=== PATIENT | female | born 1980 | race Caucasian/White ===

== ENCOUNTER 2019-04-23 04:40 | Inpatient (IN) | payer OTHER ==
--- NOTE | 2019-04-23 05:30 | HP ---
Past Medical History - Admission History Source: Patient, Family Member Limitations to Obtaining History: Language Barrier - Past Medical History ...: 2 ...Para: 1 ([facility]) ... Weeks Gestation by Dates: 39 - Smoking History Smoking history: Never smoked Have you smoked in the past 12 months: No - Alcohol/Substance Use Hx Alcohol Use: No - Social History Usual Living Arrangement: Yes: With Spouse Home Medications - Allergies Allergies/Adverse Reactions: Allergies Allergy/AdvReac Type Severity Reaction Status Date / Time No Known Allergies Allergy Verified 12/25/15 06:50 - Home Medications Home Medications: Ambulatory Orders Amoxicillin - [Amoxicillin 500mg Capsule -] 500 mg PO TID #21 capsule 02/25/16 Physical Exam - Maternity - Abdominal Exam/OB Number of Fetuses: Single Presentation: Vertex Contractions: Yes Regularity: Regular Monitor Mode: External Heart Rate Location: Midline Category: I Accelerations: Uniform - Vaginal Exam/OB Vaginal Bleediing: No Speculum Exam: No Dilatation (cm): 10 Effacement (%): 100 Amniotic Membrane Status: Bulging Amniotic Fluid: Yes: Clear Presentation: Vertex/Position (bulging membranes; ruptured) Assessment/Plan Bulging membranes. Fully dilated, station +3 At term, second baby. AROM Deliver.
--- NOTE | 2019-04-23 05:35 | PN ---
Progress Note, Labor Vaginal Exam #1 Labor Exam Date: 04/23/19 Labor Exam Time: 05:10 Heart Rate (range): wnl Dilatation: f Effacement (%): 100 Amniotic Membrane Status: Bulging Station: +3 (AROM, clear)
--- NOTE | 2019-04-23 05:37 | PN ---
Delivery - Delivery Vaginal Delivery: No Problems, Spontaneous (, female infant. Apg 9 and 9) Type of Anesthesia: None Episiotomy/Laceration: None EBL (cc): 250 Delivery, Single - Stages of Labor Date 1st Stage Initiatied: 04/22/19 Date 2nd Stage Initiated: 04/23/19 Date of Delivery: 04/23/19 Time of Delivery: 05:15 Date Placenta Delivered: 04/23/19 Time Placenta Delivered: 05:20 Placenta: Yes: Spontaneous, Normal Configuration - Condition of Lawyer/Project Officer Present: No Infant Gender: Female Position: Left, OA (No complications) Remarks - Remarks Remarks: All's well.
[2019-04-23 06:29] LABS: BASO % 0.2 % (0-2.0); EOS % 0.1 % (0-4.5); HEMATOCRIT 36.9 % (32.4-45.2); HEMOGLOBIN 12.9 GM/dL (10.7-15.3); LYMPH % 9.9 % (8-40); MCH 33.2 pg (25.7-33.7); MCHC 34.9 g/dl (32.0-36.0); MEAN CELL VOLUME 95.1 fl (80-96); MEAN PLT VOLUME 10.5 fl (7.5-11.1); MONO % 3.6 % (3.8-10.2); NEUT % 86.2 % (42.8-82.8); PLATELET COUNT 153 K/MM3 (134-434); RBC 3.88 M/mm3 (3.60-5.2); RDW 13.4 % (11.6-15.6); WHITE BLOOD COUNT 9.3 K/mm3 (4.0-10.0)
[2019-04-23 06:45] LABS: INR 0.92 (0.83-1.09); PROTHROMBIN TIME (PATIENT) 10.8 SEC (9.7-13.0)
[2019-04-23 06:48] LABS: ACTIVATED PTT 25.8 SECONDS (25.2-36.5)
[2019-04-23 06:55] LABS: BLOOD UREA NITROGEN 10.2 mg/dL (7-18); CALCIUM 8.3 mg/dL (8.5-10.1); CREATININE 0.7 mg/dL (0.55-1.3); POTASSIUM 4.2 mmol/L (3.5-5.1)
[2019-04-23] MEDS ORDERED: BENZOCAINE 28 GM HEMORRHOIDAL OINTMENT TP PRN (07:13)
[2019-04-23] MEDS ORDERED: WITCH HAZEL 50% (TUCKS) 40 PAD/JAR PAD TP PRN (07:13)
[2019-04-23] MEDS ORDERED: METHYLERGONOVINE MALEATE 0.2 MG/1 ML AMP IM PRN (07:13)
[2019-04-23] MEDS ORDERED: ACETAMINOPHEN 325 MG TABLET (FP) PO PRN (07:13)
[2019-04-23] MEDS ORDERED: BENZOCAINE 20% 57 GM BOTTLE TP PRN (07:13)
[2019-04-23] MEDS ORDERED: IBUPROFEN 600 MG TABLET (FP) PO PRN (07:13)
[2019-04-23] MEDS ORDERED: BISACODYL 10 MG SUPP.RECT RC PRN (07:13)
[2019-04-23 07:14] VITALS: BMI 24.3
[2019-04-23] MEDS: OXYTOCIN 20 UNITS in 0.9% NS 20 UNIT/1,000 ML INFUS.BAG IV SCH ×2 (07:21→09:48)
[2019-04-23] MEDS ORDERED: OXYTOCIN 20 UNITS in 0.9% NS 20 UNIT/1,000 ML INFUS.BAG IV ONE (09:36)
[2019-04-23] MEDS: PRENATAL VITAMINS W/ FOLIC ACID TABLET (FP) PO SCH (10:34)
[2019-04-24 07:30] LABS: BASO % 0.2 % (0-2.0); EOS % 0.7 % (0-4.5); HEMATOCRIT 34.4 % (32.4-45.2); MCH 33.4 pg (25.7-33.7); MEAN CELL VOLUME 95.6 fl (80-96); MEAN PLT VOLUME 10.6 fl (7.5-11.1); MONO % 6.1 % (3.8-10.2); PLATELET COUNT 152 K/MM3 (134-434); RDW 13.6 % (11.6-15.6); WHITE BLOOD COUNT 8.4 K/mm3 (4.0-10.0)
--- NOTE | 2019-04-24 08:52 | PN ---
Post Progress Note Type of Delivery: Vital Signs: Vital Signs Temperature 98.7 F 04/24/19 02:00 Pulse Rate 64 04/24/19 02:00 Respiratory Rate 18 04/24/19 02:00 Blood Pressure 84/37 L 04/24/19 02:00 O2 Sat by Pulse Oximetry (%) 100 04/23/19 07:00 Breast Exam: Yes: Soft Uterus: Yes: Fundus Firm Abdomen/GI: Yes: Abdomen soft Lochia: Yes: Rubra Lochia, amount: Moderate Extremities: Yes: Calves non-tender Perineum: Yes: Intact Activity: Ambulating (Well) - Labs Labs: CBC WBC 8.4 K/mm3 (4.0-10.0) 04/24/19 06:56 RBC 3.60 M/mm3 (3.60-5.2) 04/24/19 06:56 Hgb 12.0 GM/dL (10.7-15.3) 04/24/19 06:56 Hct 34.4 % (32.4-45.2) 04/24/19 06:56 MCV 95.6 fl (80-96) 04/24/19 06:56 MCH 33.4 pg (25.7-33.7) 04/24/19 06:56 MCHC 35.0 g/dl (32.0-36.0) 04/24/19 06:56 RDW 13.6 % (11.6-15.6) 04/24/19 06:56 Plt Count 152 K/MM3 (134-434) 04/24/19 06:56 MPV 10.6 fl (7.5-11.1) 04/24/19 06:56 Absolute Neuts (auto) 5.4 K/mm3 (1.5-8.0) 04/24/19 06:56 Neutrophils % 65.0 % (42.8-82.8) D 04/24/19 06:56 Lymphocytes % 28.0 % (8-40) D 04/24/19 06:56 Monocytes % 6.1 % (3.8-10.2) 04/24/19 06:56 Eosinophils % 0.7 % (0-4.5) D 04/24/19 06:56 Basophils % 0.2 % (0-2.0) 04/24/19 06:56 Nucleated RBC % 0 % (0-0) 04/24/19 06:56 Assessment/Plan Good recovery. Doing well. Instructions given Discharge.
[2019-04-24] MEDS: PRENATAL VITAMINS W/ FOLIC ACID TABLET (FP) PO SCH (09:33)
[2019-04-24] MEDS ORDERED: DIPHTH,PERTUSS(ACELL),TET 0.5 ML DISP.SYRIN IM ONE (10:00)
[2019-04-24 10:11] VITALS: BP 118/82; PULSE 58; TEMP 98.1
[2019-04-24] MEDS ORDERED: SENNOSIDES/DOCUSATE COMBO (SENNA PLUS) TABLET (UD) PO PRN (22:00)
== END 2019-04-24 20:50 | disposition home or self-care (01) | DRG 560 ==
LOC: JLDR 04:40 → J3W 08:14
PROVIDERS: ADMIT Obstetrics & Gynecology; ATTEND Obstetrics & Gynecology
PROC: 10E0XZZ Delivery of Products of Conception, External Approach (ICD-10-PCS; principal; 2019-04-23)
DX: O80 Encounter for full-term uncomplicated delivery (principal); Z3A.39 39 weeks gestation of pregnancy; Z37.0 Single live birth
CPT/HCPCS: 36415; 59409; 80048; 85025; 85610; 85730; 86593; 86850; 86900; 86901; 90715

== ENCOUNTER 2021-05-15 08:43 | Inpatient (IN) | payer OTHER ==
[2021-05-15] MEDS ORDERED: DEXTROSE 5%-LACTATED RINGERS 1,000 ML IV SCH (08:50)
[2021-05-15] MEDS ORDERED: WITCH HAZEL 50% (TUCKS) 40 PAD/JAR PAD TP PRN (09:19)
[2021-05-15] MEDS ORDERED: IBUPROFEN 600 MG TABLET (FP) PO PRN (09:19)
[2021-05-15] MEDS ORDERED: ACETAMINOPHEN 325 MG TABLET (FP) PO PRN (09:19)
[2021-05-15] MEDS ORDERED: BENZOCAINE 20% 57 GM BOTTLE TP PRN (09:19)
[2021-05-15] MEDS ORDERED: METHYLERGONOVINE MALEATE 0.2 MG/1 ML AMP IM PRN (09:19)
[2021-05-15] MEDS ORDERED: BENZOCAINE 28 GM HEMORRHOIDAL OINTMENT TP PRN (09:19)
[2021-05-15] MEDS ORDERED: BISACODYL 10 MG SUPP.RECT RC PRN (09:19)
[2021-05-15] MEDS ORDERED: OXYTOCIN 20 UNITS in 0.9% NS 20 UNITS/1,000 ML INFUS.BAG IV SCH (09:30)
[2021-05-15 09:41] LABS: CORD BASE EXCESS -3.7 mmol/L (0-2); CORD HCO3 21.5 mmHg (20-29); CORD HCO3 22.3 mmHg (20-29); CORD PCO2 39.4 mmHg (30-78); CORD PCO2 50.5 mmHg (30-78); CORD pH 7.263 (7.14-7.44); CORD pH 7.355 (7.14-7.44)
[2021-05-15 10:06] VITALS: BMI 26.5
[2021-05-15 10:15] LABS: BASO % 0.4 % (0-2.0); LYMPH % 10.4 % (8-40); MCH 33.7 pg (25.7-33.7); MCHC 35.7 g/dl (32.0-36.0); MEAN CELL VOLUME 94.5 fl (80-96); MEAN PLT VOLUME 9.5 fl (7.5-11.1); MONO % 4.2 % (3.8-10.2); PLATELET COUNT 135 10^3/uL (134-434); RBC 3.28 M/mm3 (3.60-5.2); RDW 12.9 % (11.6-15.6); WHITE BLOOD COUNT 7.5 K/mm3 (4.0-10.0)
[2021-05-15 10:21] LABS: INR 0.91 (0.83-1.09); PROTHROMBIN TIME (PATIENT) 11.1 SEC (9.7-13.0)
[2021-05-15 10:24] LABS: ACTIVATED PTT 24.4 SECONDS (25.2-36.5)
[2021-05-15] MEDS ORDERED: OXYTOCIN 20 UNITS in 0.9% NS 20 UNIT/1,000 ML INFUS.BAG IV ONE (10:34)
[2021-05-15] MEDS: PRENATAL VITAMINS W/ FOLIC ACID TABLET (FP) PO SCH (12:00)
[2021-05-15] MEDS: FERROUS SO4 325 MG TABLET (FP) PO SCH (18:15)
[2021-05-16] MEDS: FERROUS SO4 325 MG TABLET (FP) PO SCH ×2 (08:00→17:25)
[2021-05-16 09:01] LABS: BASO % 0.5 % (0-2.0); EOS % 0.4 % (0-4.5); HEMATOCRIT 35.2 % (32.4-45.2); HEMOGLOBIN 12.5 GM/dL (10.7-15.3); MCH 33.5 pg (25.7-33.7); MCHC 35.5 g/dl (32.0-36.0); MEAN CELL VOLUME 94.4 fl (80-96); MEAN PLT VOLUME 9.9 fl (7.5-11.1); MONO % 5.8 % (3.8-10.2); NEUT % 67.3 % (42.8-82.8); PLATELET COUNT 156 10^3/uL (134-434); RBC 3.73 M/mm3 (3.60-5.2); RDW 13.2 % (11.6-15.6); WHITE BLOOD COUNT 7.7 K/mm3 (4.0-10.0)
[2021-05-16] MEDS: PRENATAL VITAMINS W/ FOLIC ACID TABLET (FP) PO SCH (09:55)
[2021-05-16] MEDS ORDERED: SENNOSIDES/DOCUSATE COMBO (SENNA PLUS) TABLET (UD) PO PRN (22:00)
[2021-05-17] MEDS: PRENATAL VITAMINS W/ FOLIC ACID TABLET (FP) PO SCH (09:26)
[2021-05-17] MEDS: FERROUS SO4 325 MG TABLET (FP) PO SCH (09:26)
[2021-05-17 09:57] VITALS: BP 105/68; PULSE 76; TEMP 97.7
== END 2021-05-17 12:40 | disposition home or self-care (01) | DRG 560 ==
LOC: JERBED 08:43 → JLDR 09:14 → J3W 11:30
PROVIDERS: ADMIT Obstetrics & Gynecology; ATTEND Obstetrics & Gynecology
PROC: 10E0XZZ Delivery of Products of Conception, External Approach (ICD-10-PCS; principal; 2021-05-15)
PROC: 10907ZC Drainage of Amniotic Fluid, Therapeutic from Products of Conception, Via Natural or Artificial Opening (ICD-10-PCS; 2021-05-15)
DX: O62.3 Precipitate labor (principal); Z3A.38 38 weeks gestation of pregnancy; Z37.0 Single live birth
CPT/HCPCS: 36415; 36600; 59409; 80048; 82803; 85025; 85610; 85730; 86780; 86850; 86900; 86901; C9803; U0003; U0005

== ENCOUNTER 2021-08-05 04:34 | Day surgery (SDC) | payer OTHER ==
[2021-08-03 14:47] VITALS: BMI 23.4
[2021-08-05] MEDS ORDERED: GENTAMICIN SO4 80 MG/2 ML VIAL ONE (07:18)
[2021-08-05] MEDS ORDERED: LIDOCAINE HCL 1%, 10 MG/ML (20ML VIAL) ONE (07:18)
[2021-08-05] MEDS ORDERED: BUPIVACAINE HCL/PF 0.5% (5MG/ML) 10 ML VIAL ONE (07:19)
[2021-08-05] MEDS ORDERED: MIDAZOLAM HCL 2 MG/2 ML SINGLE DOSE VIAL ONE (07:51)
[2021-08-05] MEDS ORDERED: PROPOFOL 20 ML ONE ×3 (07:51)
[2021-08-05] MEDS ORDERED: SUCCINYLCHOLINE CHLORIDE 200 MG/10 ML SYRINGE ONE (07:52)
[2021-08-05] MEDS ORDERED: ROCURONIUM BROMIDE 100 MG/10 ML VIAL ONE (07:52)
[2021-08-05] MEDS ORDERED: DEXAMETHASONE SOD PHOSPHATE 4 MG/1 ML VIAL ONE (08:26)
[2021-08-05] MEDS ORDERED: KETOROLAC TROMETHAMINE 30 MG/1 ML VIAL ONE (08:26)
[2021-08-05] MEDS ORDERED: NEOSTIGMINE METHYLSULFATE 0.5 MG/ML - 10 ML MDV ONE (08:26)
[2021-08-05] MEDS ORDERED: GLYCOPYRROLATE 0.2 MG/1 ML VIAL ONE (08:26)
[2021-08-05] MEDS ORDERED: ONDANSETRON 4 MG/2 ML VIAL ONE (08:26)
[2021-08-05] MEDS ORDERED: BUPIVACAINE HCL/PF 0.5% (5MG/ML) 10 ML VIAL IJ ONE ×2 (08:34→09:05)
[2021-08-05] MEDS ORDERED: oxyCODONE HCL 5 MG TABLET PO PRN ×2 (09:13→09:23)
[2021-08-05] MEDS ORDERED: ACETAMINOPHEN 325 MG TABLET (FP) PO PRN (09:13)
[2021-08-05] MEDS ORDERED: IBUPROFEN 600 MG TABLET (FP) PO PRN (09:13)
[2021-08-05] MEDS ORDERED: ONDANSETRON 4 MG/2 ML VIAL IVPUSH PRN ×2 (09:16→09:23)
[2021-08-05] MEDS ORDERED: ACETAMINOPHEN INJECTION 100 ML IVPB ONE (09:21)
[2021-08-05] MEDS ORDERED: ACETAMINOPHEN 1000 MG/100 ML VIAL IVPB ONE ×2 (09:24→09:30)
[2021-08-05] MEDS ORDERED: LACTATED RINGERS SOLUTION 1,000 ML IV SCH (09:30)
[2021-08-05 11:43] VITALS: BP 110/66; PULSE 74; TEMP 98.5
== END 2021-08-05 11:40 | disposition home or self-care (01) ==
LOC: JASU-SURG 04:34
PROVIDERS: ATTEND Obstetrics & Gynecology
PROC: 0UT74ZZ Resection of Bilateral Fallopian Tubes, Percutaneous Endoscopic Approach (ICD-10-PCS; principal; 2021-08-05 08:00)
DX: Z30.2 Encounter for sterilization (principal); N83.8 Other noninflammatory disorders of ovary, fallopian tube and broad ligament
CPT/HCPCS: 81025; 88302-TC; 88304-TC; 94760; J0131